=== PATIENT | female | born 1970 | race Asian ===

== ENCOUNTER 2018-07-16 07:33 | Emergency (ER) | payer MEDICAID ==
[~2018-07-16] VITALS: Ht 160 cm; Wt 52.2 kg
[2018-07-16 07:45] VITALS: BP 126/86
--- NOTE | 2018-07-16 08:22 | Emergency Room Report ---
History of Present Illness General Chief Complaint: Allergic Reaction Source: Patient Present Illness HPI 47-year-old female with no medical problems presents with itchy red raised rash that started yesterday, she tried Banophen without much relief, and can't think of any obvious triggers. She denies any medications other than a vitamin D supplement which she's had multiple doses of, most recently 4 days ago. She denies any new cosmetic products, detergents, clothing, upholstery, foods, or any obvious triggers at all. Denies any sore throat, oral or genital or anal involvement, shortness of breath, abdominal pain, nausea, and reports the rash is mainly over her face and a few patches on her arms. Allergies: Coded Allergies: No Known Allergies (Unverified , 07/16/18) Patient History Past Medical History: see triage record Last Menstrual Period: now Now: No Reviewed Nursing Documentation: PMH: Agreed; PSxH: Agreed Review of Systems All Other Systems: negative except mentioned in HPI Physical Exam Vital Signs Date Time Temp Pulse Resp B/P (MAP) Pulse Ox O2 Delivery O2 Flow Rate FiO2 07/16/18 07:38 98.2 74 18 126/86 97 Room Air Sp02 EP Interpretation: reviewed, normal General Appearance: no apparent distress, alert, non-toxic Head: normocephalic Eyes: bilateral eye normal inspection, bilateral eye PERRL, bilateral eye EOMI ENT: normal ENT inspection, hearing grossly normal, normal pharynx, no angioedema, normal voice, moist mucus membranes Neck: normal inspection, full range of motion, supple, supple/symm/no masses Respiratory: chest non-tender, lungs clear, normal breath sounds, chest symmetrical, palpation of chest normal Cardiovascular #1: normal peripheral pulses, regular rate, rhythm Cardiovascular #2: 2+ radial (R), 2+ radial (L) Gastrointestinal: normal inspection, non tender, soft, no mass, no guarding, no rebound Rectal: deferred Genitourinary: normal inspection, no CVA tenderness Musculoskeletal: back normal, gait/station normal, normal range of motion, non- tender, no calf tenderness Neurologic: alert, responsive, 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 Also a few patches noted over upper neck and bilateral wrist area and hand dorsum, spares palms and soles Lymphatic: no adenopathy Medical Decision Making Diagnostic Impression: Primary Impression: Allergic reaction ER Course Patient with reaction consistent with hives, no obvious triggers, recommend patient follow-up with PMD for referral for allergy testing, patient understands and agrees, she has no signs of anaphylaxis or airway involvement, no signs of Bonilla-David syndrome or toxic epidermal necrolysis, was given a dose of Benadryl and Pepcid and prednisone here, will be given prescriptions for the same for 5 days, patient discharged in stable condition, diagnosis hives and allergic reaction of unknown etiology. Last Vital Signs Date Time Temp Pulse Resp B/P (MAP) Pulse Ox O2 Delivery O2 Flow Rate FiO2 07/16/18 07:45 98.2 74 18 126/86 97 Room Air Disposition: HOME, SELF-CARE Condition: Stable Referrals: [facility]AUNCE[facility],REFERRING (PCP) VALENTINO LOVE M.D Jul 16, 2018 08:22
[2018-07-16] MEDS ORDERED: BENADRYL25 M3 PO (08:27)
[2018-07-16] MEDS ORDERED: PREDNISONE20 MG ORAL (08:27)
[2018-07-16] MEDS ORDERED: PEPCID AC20 M2 PO (08:27)
[2018-07-16 08:40] VITALS: BP 128/79
[2018-07-16 08:41] VITALS: BP 128/79
== END 2018-07-16 08:47 | disposition home or self-care (01) ==
LOC: EMR 08:07
DX: T78.40XA Allergy, unspecified, initial encounter (principal); X58.XXXA Exposure to other specified factors, initial encounter
CPT/HCPCS: 99282; J7512